=== PATIENT | female | born 1940 | race Caucasian/White ===

== ENCOUNTER 2018-09-30 18:43 | Emergency (ER) | payer MEDICARE, BC ==
[2018-09-30] MEDS ORDERED: ACETAMINOPHEN 325 MG TABLET PO ONE (19:24)
[2018-09-30] MEDS ORDERED: ONDANSETRON HCL INJ/PF 4 MG/2 ML SDV IV ONE (19:24)
--- NOTE | 2018-09-30 19:25 | ER Document Report ---
ED Medical Screen (RME) - General Chief Complaint: Headache Stated Complaint: HEADPAIN Time Seen by Provider: 09/30/18 19:22 Primary Care Provider: JULIAN BLAKE MD [Primary Care Provider] - Follow up as needed Mode of Arrival: Ambulatory Information source: Patient Notes: Patient presents complaining of headache for the past 3 days has wavered in intensity. Patient does present tonight hypertensive with headache from the neck that radiates from the back of the head to the front. Patient does complain of nausea. Patient denies any head injury or fever. Patient reports she has been compliant with her antihypertensive medication. I have greeted and performed a rapid initial assessment of this patient. A comprehensive ED assessment and evaluation of the patient, analysis of test results and completion of the medical decision making process will be conducted by additional ED providers. TRAVEL OUTSIDE OF THE [place] IN LAST 30 DAYS: No - Related Data Allergies/Adverse Reactions: amoxicillin Allergy (Verified 09/30/18 18:53) Past Medical History - Past Medical History Cardiac Medical History: Reports: Hx Hypercholesterolemia, Hx Hypertension Renal/ Medical History: Denies: Hx Peritoneal Dialysis Physical Exam - Vital signs Vitals: Temp Pulse Resp BP Pulse Ox 98.1 F 79 18 221/80 H 97 09/30/18 19:02 09/30/18 19:02 09/30/18 19:02 09/30/18 19:02 09/30/18 19:02 - Neurological Neuro grossly intact: Yes Cognition: Normal Adrien Coma Scale Eye Opening: Spontaneous Adrien Coma Scale Verbal: Oriented [place] Coma Scale Motor: Obeys Commands Adrien Coma Scale Total: 15 Speech: Normal. No: Dysarthria Cerebellar coordination: Normal Course - Vital Signs Vital signs: Temp Pulse Resp BP Pulse Ox 98.1 F 79 18 221/80 H 97 09/30/18 19:02 09/30/18 19:02 09/30/18 19:02 09/30/18 19:02 09/30/18 19:02 Doctor's Discharge - Discharge Referrals: JULIAN BLAKE MD [Primary Care Provider] - Follow up as needed
--- NOTE | 2018-09-30 20:05 | RADIOLOGY REPORT (SQ) ---
EXAM DESCRIPTION: CT HEAD WITHOUT IV CONTRAST COMPLETED DATE/TME: 09/30/2018 19:22 CLINICAL HISTORY: 77 years Female H[place] COMPARISON: None. TECHNIQUE: Contiguous axial CT images obtained through the brain without IV contrast. This exam was performed according to our department optimization program which includes automated exposure control, adjustment of the mA and/or kv according to patient size and/or use of iterative reconstruction technique. FINDINGS: The ventricles and sulci are within normal limits for the patient's age. No midline shift or mass effect. No masses identified. No acute intracranial hemorrhage. Vascular calcification No fluid or significant mucosal thickening in the visualized paranasal sinuses. No depressed calvarial fractures. IMPRESSION: No acute intracranial abnormality is identified.
[2018-09-30 20:06] LABS: ABSOLUTE BASOPHILS # (AUTO) 0.1 10^3/uL (0.0-0.2); ABSOLUTE EOSINOPHILS # (AUTO) 0.2 10^3/uL (0.0-0.6); ABSOLUTE LYMPHOCYTES (AUTO) 3.4 10^3/uL (0.5-4.7); ABSOLUTE MONOCYTES (AUTO) 0.8 10^3/uL (0.1-1.4); BASOPHILS % (AUTO) 0.8 % (0-2); EOSINOPHILS % (AUTO) 1.8 % (0-6); HEMATOCRIT 39.7 % (36.0-47.0); HEMOGLOBIN 14.1 g/dL (12.0-15.5); LYMPHOCYTES % (AUTO) 36.6 % (13-45); MEAN CORPUSCULAR HEMOGLOBIN 33.7 pg (27.0-33.4); MEAN CORPUSCULAR HGB CONC 35.5 g/dL (32.0-36.0); MEAN CORPUSCULAR VOLUME 95 fl (80-97); MONOCYTES % (AUTO) 8.1 % (3-13); PLATELET COUNT 266 10^3/uL (150-450); RED BLOOD COUNT 4.19 10^6/uL (3.72-5.28); RED CELL DISTRIBUTION WIDTH 12.9 % (11.5-14.0); SEGMENTED NEUTROPHILS % (AUTO) 52.7 % (42-78); TOTAL CELLS COUNTED % (AUTO) 100 %; WHITE BLOOD COUNT 9.4 10^3/uL (4.0-10.5)
--- NOTE | 2018-09-30 20:31 | ER Document Report ---
ED Headache - General Chief Complaint: Headache Stated Complaint: HEADPAIN Time Seen by Provider: 09/30/18 19:22 Primary Care Provider: JULIAN BLAKE MD [Primary Care Provider] - Follow up as needed Mode of Arrival: Ambulatory Information source: Patient TRAVEL OUTSIDE OF THE [place] IN LAST 30 DAYS: No - HPI Notes: Patient 77-year-old female with a history of hypertension, high cholesterol, and hypothyroidism to the emergency department with chief complaint of headache and elevated blood pressure. Patient reports that the headache started on and has been intermittent since then until today when it became more constant. Patient reports a history of ocular headaches, but states this feels different. Patient did recently travel to [place] by vehicle. States she has been taking her lisinopril 40 mg daily as prescribed and has not missed a dose. Headache starts on each side of her neck and radiates to the middle portion of her head. Reports nausea, denies vomiting. Denies chest pain or shortness of breath. Patient did report dizziness with her headache "just really hurt." - Related Data Allergies/Adverse Reactions: amoxicillin Allergy (Verified 09/30/18 18:53) Past Medical History - General Information source: Patient - Social History Smoking Status: Never Smoker Cigarette use (# per day): No Chew tobacco use (# tins/day): No Smoking Education Provided: No Lives with: Spouse/Significant other Family History: None Patient has suicidal ideation: No Patient has homicidal ideation: No - Past Medical History Cardiac Medical History: Reports: Hx Hypercholesterolemia, Hx Hypertension Renal/ Medical History: Denies: Hx Peritoneal Dialysis Review of Systems - Review of Systems Constitutional: No symptoms reported EENT: See HPI Cardiovascular: No symptoms reported Respiratory: No symptoms reported Gastrointestinal: See HPI Genitourinary: No symptoms reported Female Genitourinary: No symptoms reported Musculoskeletal: No symptoms reported Skin: No symptoms reported Hematologic/Lymphatic: No symptoms reported Neurological/Psychological: No symptoms reported Physical Exam - Vital signs Vitals: Temp Pulse Resp BP Pulse Ox 98.1 F 79 18 221/80 H 97 09/30/18 19:02 09/30/18 19:02 09/30/18 19:02 09/30/18 19:02 09/30/18 19:02 - Notes Notes: PHYSICAL EXAMINATION: GENERAL: Well-appearing, well-nourished and in no acute distress. HEAD: Atraumatic, normocephalic. EYES: Pupils equal round and reactive to light, extraocular movements intact, sclera anicteric, conjunctiva are normal. ENT: nares patent, oropharynx clear without exudates. Moist mucous membranes. NECK: Normal range of motion, supple without lymphadenopathy LUNGS: Breath sounds clear to auscultation bilaterally and equal. No wheezes rales or rhonchi. HEART: Regular rate and rhythm without murmurs ABDOMEN: Soft, nontender, normoactive bowel sounds. No guarding, no rebound. No masses appreciated. EXTREMITIES: Normal range of motion, no pitting or edema. No cyanosis. NEUROLOGICAL: No focal neurological deficits. Moves all extremities spontaneously and on command. PSYCH: Normal mood, normal affect. SKIN: Warm, Dry, normal turgor, no rashes or lesions noted. Course - Re-evaluation Re-evalutation: 09/30/18 20:37 Upon assessment patient's blood pressure had decreased to 171/49. Reports after receiving the Zofran did help with her nausea. Patient does report feeling better after receiving Tylenol. Will wait on lab results and obtain EKG. 09/30/18 22:30 Discussed lab results, CT scan, and EKG with patient and . She reports feeling much better and now rating her headache a 1 out of 5. States that the Zofran helped with her nausea. Her blood pressure is 147/54. Patient in no acute distress and states that she is ready to go home. Patient reports that she has been dealing with stressors at home. Informed to follow-up with primary care physician and to keep a blood pressure log at home. Please return to the emergency department if your blood pressure becomes elevated and you are symptomatic such as dizziness, vomiting, severe headache, or any other concerning signs or symptoms. Signs and symptoms of stroke with patient and . Verbalized understanding of plan of care and in agreement. Patient also reiterated that the Tylenol did help with her headache. 09/30/18 22:43 - Vital Signs Vital signs: Temp Pulse Resp BP Pulse Ox 98 F 79 12 147/54 H 95 09/30/18 22:01 09/30/18 19:02 09/30/18 22:01 09/30/18 22:01 09/30/18 22:01 - Laboratory Result Diagrams: 09/30/18 19:52 09/30/18 19:52 Laboratory results interpreted by me: 09/30/18 09/30/18 19:52 19:52 MCH 33.7 H Chloride 108 H - Diagnostic Test Radiology reviewed: Reports reviewed - EKG Interpretation by Me Additional EKG results interpreted by me: 09/30/18 22:34 EKG showed a normal sinus rhythm, rate at 77. ME 141, QT 388, QTc 440. No ST elevation or T wave abnormalities. No ectopy. Discharge - Discharge Clinical Impression: Nausea Hypertension Qualifiers: Hypertension type: unspecified Qualified Code(s): I10 - Essential (primary) hypertension Headache Qualifiers: Headache type: unspecified Headache chronicity pattern: unspecified pattern Intractability: not intractable Qualified Code(s): R51 - Headache Condition: Stable Disposition: HOME, SELF-CARE Instructions: Headache ([facility]) Additional Instructions: You were seen in the emergency department today for elevated blood pressure and headache. The CAT scan of your head was negative. The blood work and EKG was unremarkable. Please follow-up with your primary care physician regarding your blood pressure. Keep a blood pressure log at home continue your home medications as previously prescribed. Please return to the emergency department for worsening headache, vomiting, any change in neurological symptoms, chest pain, or any other concerning signs or symptoms. Headache The physician does not feel that the headache you are experiencing has a serious underlying cause. Most headaches are due to emotional stress, with resultant muscle tension (tension headache). Occasionally, headaches are secondary to changes in the blood vessels of the scalp (vascular headache and migraine headache). Sometimes, a headache is the first symptom of another developing illness, such as a viral infection. You have no evidence of stroke, bleeding, meningitis, or other serious cause of your headache. The treatment of headaches varies with the severity and cause of the pain. Not all headaches need pain shots. In fact, there is evidence that using narcotics for headaches may make them worse in the long run. The physician will determine the therapy that's in your best interest. If you develop a fever, if the headache is different from any you've previously experienced, or if the headache progressively worsens, then call your physician at once or go to the emergency room. Referrals: JULIAN BLAKE MD [Primary Care Provider] - Follow up as needed
[2018-09-30 20:33] LABS: ALANINE AMINOTRANSFERASE 19 U/L (9-52); ALBUMIN 4.6 g/dL (3.5-5.0); ALKALINE PHOSPHATASE 62 U/L (38-126); ANION GAP 7 (5-19); ASPARTATE AMINO TRANSFERASE 35 U/L (14-36); BILIRUBIN,DIRECT 0.2 mg/dL (0.0-0.4); BILIRUBIN,TOTAL 0.6 mg/dL (0.2-1.3); BLOOD UREA NITROGEN 14 mg/dL (7-20); CALCIUM 10.2 mg/dL (8.4-10.2); CARBON DIOXIDE 27 mmol/L (22-30); CHLORIDE 108 mmol/L (98-107); GLUCOSE 94 mg/dL (75-110); POTASSIUM 3.9 mmol/L (3.6-5.0); SODIUM 141.6 mmol/L (137-145); TOTAL PROTEIN 7.7 g/dL (6.3-8.2)
--- NOTE | 2018-09-30 20:48 | EKG REPORT ---
SEVERITY:- BORDERLINE ECG - SINUS RHYTHM PROBABLE LEFT ATRIAL ABNORMALITY : Confirmed by: Nanda Forrest MD 30-Sep-2018 20:47:47
[2018-09-30 23:09] VITALS: BP 147/54
== END 2018-09-30 22:58 | disposition home or self-care (01) ==
LOC: ER 18:43
DX: R11.0 Nausea (principal); R51 Headache; I10 Essential (primary) hypertension; E78.00 Pure hypercholesterolemia, unspecified; E03.9 Hypothyroidism, unspecified; Z88.0 Allergy status to penicillin
CPT/HCPCS: 99284; 96374; 36415; 85025; 80053; 70450; 93005; 93010; A9270; J2405

== ENCOUNTER 2018-10-02 22:30 | Emergency (ER) | payer MEDICARE, BC ==
[2018-10-02] MEDS ORDERED: ACETAMINOPHEN 325 MG TABLET PO ONE (22:50)
--- NOTE | 2018-10-02 22:53 | ER Document Report ---
ED Medical Screen (RME) - General Chief Complaint: Headache Stated Complaint: HEADACHE Time Seen by Provider: 10/02/18 22:49 Primary Care Provider: JULIAN BLAKE MD [Primary Care Provider] - Follow up as needed Notes: 77-year-old female with a history of hypertension that comes to the emergency department for chief complaint of a headache in the back of her head and blood pressure reading of 220 systolic at home. By primary care today, blood pressure was 120s at the office, she did have her blood pressure medication adjusted but has not filled the new prescription. Denies vomiting, visual changes, focal numbness or weakness. TRAVEL OUTSIDE OF THE [place] IN LAST 30 DAYS: No - Related Data Allergies/Adverse Reactions: amoxicillin Allergy (Verified 09/30/18 18:53) Past Medical History - Past Medical History Cardiac Medical History: Reports: Hx Hypercholesterolemia, Hx Hypertension Renal/ Medical History: Denies: Hx Peritoneal Dialysis Physical Exam - Vital signs Vitals: Temp Pulse Resp BP Pulse Ox 97.8 F 76 16 208/73 H 96 10/02/18 22:31 10/02/18 22:31 10/02/18 22:31 10/02/18 22:31 10/02/18 22:31 - General General appearance: Appears well In distress: None - Neurological Neuro grossly intact: Yes Cognition: Normal Orientation: AAOx4 Adrien Coma Scale Verbal: Oriented [place] Coma Scale Motor: Obeys Commands Speech: Normal Cranial nerves: Normal Cerebellar coordination: Normal Motor strength normal: LUE, RUE, LLE, RLE 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 As a result CAT scan will be performed. I have greeted and performed a rapid initial assessment of this patient. A comprehensive ED assessment and evaluation of the patient, analysis of test results and completion of the medical decision making process will be conducted by additional ED providers. - Vital Signs Vital signs: Temp Pulse Resp BP Pulse Ox 97.8 F 76 16 208/73 H 96 10/02/18 22:31 10/02/18 22:31 10/02/18 22:31 10/02/18 22:31 10/02/18 22:31 Doctor's Discharge - Discharge Referrals: JULIAN BLAKE MD [Primary Care Provider] - Follow up as needed
--- NOTE | 2018-10-02 23:48 | RADIOLOGY REPORT (SQ) ---
CLINICAL HISTORY: headache, blood pressure >200 systolic COMPARISON: September 30, 2018. TECHNIQUE: CT HEAD WITHOUT IV CONTRAST on 10/02/2018 10:50 PM CDT This exam was performed according to our departmental dose-optimization program, which includes automated exposure control, adjustment of the mA and/or kV according to patient size and/or use of iterative reconstruction technique. FINDINGS: There is no acute hemorrhage, mass effect or midline shift. Nagel-white differentiation is preserved. There is no hydrocephalus. There is no significant volume loss for age. There are mild patchy hypodensities within the periventricular and subcortical white matter, consistent with microangiopathic ischemic changes. The calvarium is intact. Orbits and globes are unremarkable. The paranasal sinuses are clear. Mastoid air cells are clear. IMPRESSION: No acute intracranial findings.
--- NOTE | 2018-10-03 00:03 | ER Document Report ---
ED Headache - General Chief Complaint: Headache Stated Complaint: HEADACHE Time Seen by Provider: 10/02/18 22:49 Primary Care Provider: JULIAN BLAKE MD [Primary Care Provider] - Follow up as needed Notes: Patient is a 77-year-old female with a history of hypertension that comes to the emergency department for chief complaint of a headache in the back of her head and blood pressure reading of 220 systolic at home. By primary care today, blood pressure was 120s at the office, she did have her blood pressure medication adjusted but has not filled the new prescription. Denies vomiting, visual changes, focal numbness or weakness. TRAVEL OUTSIDE OF THE [place] IN LAST 30 DAYS: No - Related Data Allergies/Adverse Reactions: amoxicillin Allergy (Verified 09/30/18 18:53) Past Medical History - General Information source: Patient - Social History Smoking Status: Never Smoker Frequency of alcohol use: None Drug Abuse: None Lives with: Family Family History: None - Past Medical History Cardiac Medical History: Reports: Hx Hypercholesterolemia, Hx Hypertension Renal/ Medical History: Denies: Hx Peritoneal Dialysis Review of Systems - Review of Systems Constitutional: No symptoms reported EENT: No symptoms reported Cardiovascular: No symptoms reported Respiratory: No symptoms reported Gastrointestinal: No symptoms reported Genitourinary: No symptoms reported Female Genitourinary: No symptoms reported Musculoskeletal: No symptoms reported Skin: No symptoms reported Hematologic/Lymphatic: No symptoms reported Neurological/Psychological: See HPI Physical Exam - Vital signs Vitals: Temp Pulse Resp BP Pulse Ox 97.8 F 76 16 208/73 H 96 10/02/18 22:31 10/02/18 22:31 10/02/18 22:31 10/02/18 22:31 10/02/18 22:31 - Notes Notes: GENERAL: Alert, interacts well. No acute distress. HEAD: Normocephalic, atraumatic. EYES: Pupils equal, round, and reactive to light. Extraocular movements intact. ENT: Oral mucosa moist, tongue midline. Oropharynx unremarkable. Airway patent. Nares patent, no nasal septal hematoma, TM's intact. NECK: Full range of motion. Supple. Trachea midline. LUNGS: Clear to auscultation bilaterally, no wheezes, rales, or rhonchi. No respiratory distress. HEART: Regular rate and rhythm. No murmur ABDOMEN: Soft, non-tender. Non-distended. Bowel sounds present in all 4 quadrants. GENITOURINARY: Deferred EXTREMITIES: Moves all 4 extremities spontaneously. No edema, normal radial and dorsalis pedis pulses bilaterally. No cyanosis. BACK: no cervical, thoracic, lumbar midline tenderness. No saddle anesthesia, normal distal neurovascular exam. NEUROLOGICAL: Alert and oriented x3. Normal speech. Cranial nerves II through XII grossly intact. PSYCH: Normal affect, normal mood. SKIN: Warm, dry, normal turgor. No rashes or lesions noted. Course - Re-evaluation Re-evalutation: Patient is well appearing but does complain of a posterior headache. Blood pressure 208 systolic on arrival. No neurological deficits. Patient is not in distress. However because of her age, blood pressure elevation, and headache decision was made to perform cat scan. She denies chest pain, she is urinating normally. Cat scan negative for acute findings. I re-evaluated patient after she had been given Tylenol in triage and she has no current symptoms. I rechecked her blood pressure and found a systolic blood pressure of 165. Patient is requesting to go home. She reports her headache has completely resolved. Based on this, her neurological exam, and her negative CAT scan I do have a low suspicion of acute intracranial hemorrhage or other stroke. Patient shows me that she has adjustment of her blood pressure medication which she will be starting today when she fills her prescription. She also has treatment of her tension headache prescribed. She has a follow-up later today as well. Discussed strict return precautions with patient and . They state satisfaction and agreement. Stable at time of discharge. - Vital Signs Vital signs: Temp Pulse Resp BP Pulse Ox 97.8 F 76 16 165/68 H 96 10/02/18 22:31 10/02/18 22:31 10/02/18 22:31 10/03/18 00:00 10/02/18 22:31 Discharge - Discharge Clinical Impression: Headache Qualifiers: Headache type: tension-type Headache chronicity pattern: acute headache Intractability: not intractable Qualified Code(s): G44.209 - Tension-type headache, unspecified, not intractable Hypertension Qualifiers: Hypertension type: unspecified Qualified Code(s): I10 - Essential (primary) hypertension Condition: Stable Disposition: HOME, SELF-CARE Additional Instructions: Your CAT scan of the head does not show any concerning findings. Your evaluation is reassuring. Your symptoms do suggest tension type headaches. Your blood pressure also need better control. Start your new blood pressure regimen, follow-up with your primary care for additional adjustments. Return for any concerning symptoms including severe headache, vomiting, confusion, weakness on one side of your body, visual changes, chest pain, or any other concerning symptoms. Referrals: JULIAN BLAKE MD [Primary Care Provider] - Follow up as needed
[2018-10-03 05:06] VITALS: BP 165/68
== END 2018-10-03 00:10 | disposition home or self-care (01) ==
LOC: ER 22:30
DX: G44.209 Tension-type headache, unspecified, not intractable (principal); I10 Essential (primary) hypertension; Z79.899 Other long term (current) drug therapy; Z88.0 Allergy status to penicillin
CPT/HCPCS: 99284; 70450; A9270

== ENCOUNTER → 2018-10-24 | Outpatient (CLI) | payer MEDICARE, BC ==
--- NOTE | 2018-10-24 12:21 | RADIOLOGY REPORT (SQ) ---
EXAM DESCRIPTION: DUPLEX ART/LUZ FLOW COMPLETE COMPLETED DATE/TIME: 10/24/2018 9:24 am REASON FOR STUDY: RENOVASCULAR HTN (I15.0) I15.0 RENOVASCULAR HYPERTENSION COMPARISON: None. TECHNIQUE: Realtime and static grayscale images acquired. Selected color Doppler, velocities and spe ctral images recorded. LIMITATIONS: None. FINDINGS: RIGHT KIDNEY: RENAL ARTERY VELOCITIES: Origin and mid renal artery not visualized. Hilum velocities measure 66 cm/ sec. Segmental artery velocity 60 cm/sec. RENAL VEIN: Color doppler flow present, patent. VELOCITY RATIO: 1.0. Normal waveforms. KIDNEY: Normal size. No significant pathology. LEFT KIDNEY: RENAL ARTERY VELOCITIES: Origin and mid renal artery is not visualized. Hilum velocities measure 119 Cm/sec. Segmental artery velocity 45 cm/sec. RENAL VEIN: Color doppler flow present, patent. VELOCITY RATIO: 1.8. Normal waveforms. KIDNEY: Normal size. No significant pathology. BLADDER: Normal. OTHER: Minimally elevated RIS bilaterally, a nonspecific finding. IMPRESSION: NO DOPPLER EVIDENCE OF HEMODYNAMICALLY SIGNIFICANT RENAL ARTERY STENOSIS. COMMENT: NORMAL RENAL ARTERY/AORTA VELOCITY RATIO IS LESS THAN OR EQUAL TO 3.5. TECHNICAL DOCUMENTATION: JOB ID: [id number] [employer]- All Rights Reserved Reading location - IP/workstation name: [email or web address]
== END ==
LOC: RAD 06:33
PROVIDERS: ATTEND Family Medicine
DX: I15.0 Renovascular hypertension (principal)
CPT/HCPCS: 93975

== ENCOUNTER → 2018-11-07 | Outpatient (CLI) | payer MEDICARE, BC ==
--- NOTE | 2018-11-07 15:15 | RADIOLOGY REPORT (SQ) ---
EXAM DESCRIPTION: CHEST PA/LATERAL COMPLETED DATE/TIME: 11/07/2018 2:51 pm REASON FOR STUDY: CHEST PAIN COMPARISON: None. EXAM PARAMETERS: NUMBER OF VIEWS: two views TECHNIQUE: Digital Frontal and Lateral radiographic views of the chest acquired. RADIATION DOSE: NA LIMITATIONS: none FINDINGS: LUNGS AND PLEURA: No opacities, masses or pneumothorax. No pleural effusion. 5 mm nodular density overlies right lung apex. MEDIASTINUM AND HILAR STRUCTURES: No masses or contour abnormalities. HEART AND VASCULAR STRUCTURES: Normal heart size. Aortic atherosclerosis. BONES: No acute findings. HARDWARE: None in the chest. OTHER: No other significant finding. IMPRESSION: No evidence of acute cardiopulmonary process. 5 mm nodular density overlies right lung apex possibly calcified granuloma. Recommend correlation wi th priors if available or nonemergent CT for further characterization. TECHNICAL DOCUMENTATION: JOB ID: [id number] [employer]- All Rights Reserved Reading location - IP/workstation name: [email or web address]
== END ==
LOC: OD 14:39
PROVIDERS: ATTEND Family Medicine
DX: J98.4 Other disorders of lung (principal); R07.9 Chest pain, unspecified
CPT/HCPCS: 71046

== ENCOUNTER → 2019-07-25 | Outpatient (CLI) | payer MEDICARE, BC ==
--- NOTE | 2019-07-25 13:49 | RADIOLOGY REPORT (SQ) ---
EXAM DESCRIPTION: CHEST PA/LATERAL COMPLETED DATE/TIME: 07/25/2019 12:00 pm REASON FOR STUDY: OTH SYMPTOMS AND SIGNS INVOLVING THE CIRC AND RESP SYSTEMS COMPARISON: 11/07/2018 EXAM PARAMETERS: NUMBER OF VIEWS: two views TECHNIQUE: Digital Frontal and Lateral radiographic views of the chest acquired. RADIATION DOSE: NA LIMITATIONS: none FINDINGS: LUNGS AND PLEURA: No opacities, masses or pneumothorax. No pleural effusion. MEDIASTINUM AND HILAR STRUCTURES: No masses or contour abnormalities. HEART AND VASCULAR STRUCTURES: Heart normal size. No evidence for failure. BONES: No acute findings. HARDWARE: None in the chest. OTHER: No other significant finding. IMPRESSION: NO SIGNIFICANT RADIOGRAPHIC FINDING IN THE CHEST. TECHNICAL DOCUMENTATION: JOB ID: [id number] [employer]- All Rights Reserved Reading location - IP/workstation name: [email or web address]
== END ==
LOC: OD 11:48
PROVIDERS: ATTEND Family Medicine
DX: R09.89 Other specified symptoms and signs involving the circulatory and respiratory systems (principal)
CPT/HCPCS: 71046

== ENCOUNTER 2019-12-06 08:38 | Day surgery (SDC) | payer MEDICARE, BC ==
[2019-12-03 10:13] LABS: ANION GAP 9 (5-19); BLOOD UREA NITROGEN 18 mg/dL (7-20); CALCIUM 10.5 mg/dL (8.4-10.2); CARBON DIOXIDE 28 mmol/L (22-30); CHLORIDE 101 mmol/L (98-107); GLUCOSE 113 mg/dL (75-110); POTASSIUM 5.2 mmol/L (3.6-5.0)
--- NOTE | 2019-12-03 10:36 | EKG REPORT ---
SEVERITY:- OTHERWISE NORMAL ECG - SINUS ARRHYTHMIA, RATE 52-70 : Confirmed by: Rani Pineda 03-Dec-2019 10:34:56
[~2019-12-06 08:38] MED LIST: LACTATED RINGERS 1000 ML IV PRN; LIDOCAINE 0.5% INJ-PF (5 MG/ML) 50 ML SDV SUBCUT PRN
[2019-12-06] MEDS ORDERED: PROPOFOL INJ 200 MG/20 ML VIAL IV ONE (10:49)
[2019-12-06] MEDS ORDERED: DIPHENHYDRAMINE HCL 50 MG/ML VIAL IV PRN (11:23)
[2019-12-06] MEDS ORDERED: PROMETHAZINE HCL INJ 25 MG/1 ML VIAL IV PRN (11:23)
[2019-12-06] MEDS ORDERED: FENTANYL CITRATE INJ/PF 100 MCG/2 ML AMPUL IV PRN (11:23)
--- NOTE | 2019-12-06 11:56 | Operative Report ---
Nonrecallable Operative Report DATE OF SURGERY: 12/06/19 PREOPERATIVE DIAGNOSIS: History of colon polyps, screening for malignancy POSTOPERATIVE DIAGNOSIS: 1. Normal screening colonoscopy. 2. Diverticulosis, without signs of diverticulitis. 3. Small, nonbleeding internal hemorrhoids. OPERATION: Colonoscopy to the cecum SURGEON: CORRINA RODRÍGUEZ ANESTHESIA: LMAC TISSUE REMOVED OR ALTERED: None COMPLICATIONS: None apparent ESTIMATED BLOOD LOSS: None PROCEDURE: Procedure in detail: After informed consent was obtained, the patient was brought to the operating room and laid in the left lateral decubitus position. The endoscope was inserted into the rectum. It was passed up the rectum, sigmoid colon, descending colon, across the transverse colon, down the ascending colon, and into the cecum. The ileocecal valve and appendiceal orifice were identified. The scope was then withdrawn, circumferentially noting the mucosa. The prep was excellent. The scope was withdrawn past the ascending colon, transverse colon, down the descending colon, and into the sigmoid colon. In the sigmoid colon several small, scattered diverticula were identified. The scope was then brought into the rectum. A retroflexion maneuver was performed. There were small, nonbleeding internal hemorrhoids identified. The scope was then straightened, air was suctioned from the rectum, the scope was removed, and the procedure was concluded. All sponge, instrument, and needle counts were correct x2. Condition: Stable. Recommendation: Repeat colonoscopy in 5 years due to personal history of colon polyps.
--- NOTE | 2019-12-06 11:58 | Discharge Summary ---
Discharge Summary (SDC) - Discharge Final Diagnosis: Normal screening colonoscopy Date of Surgery: 12/06/19 Discharge Date: 12/06/19 Condition: Stable Treatment or Instructions: Discharge home. Diet as tolerated. Activity, as tolerated. Follow-up with [place] [facility] in 5 years for repeat colonoscopy. Referrals: JULIAN BLAKE MD [Primary Care Provider] - Discharge Diet: As Tolerated Respiratory Treatments at Home: Deep Breathing/Coughing, Incentive Spirometer Discharge Activity: Activity As Tolerated Home Care Assistance: None Needed Report the Following to Your Physician Immediately: Shortness of Breath, Nausea, Vomiting, Increase in Pain, Fever over 101 Degrees, Unusual Bleeding, Redness, Swelling, Warmth
[2019-12-06 13:56] VITALS: BP 135/59
== END 2019-12-06 12:40 | disposition home or self-care (01) ==
LOC: OROUT 08:38
PROVIDERS: ATTEND Surgery
DX: Z12.11 Encounter for screening for malignant neoplasm of colon (principal); K57.30 Diverticulosis of large intestine without perforation or abscess without bleeding; K64.8 Other hemorrhoids; Z86.010 Personal history of colon polyps; Z03.818 Encounter for observation for suspected exposure to other biological agents ruled out; I10 Essential (primary) hypertension; Z88.0 Allergy status to penicillin; E78.00 Pure hypercholesterolemia, unspecified; E03.9 Hypothyroidism, unspecified; Z87.891 Personal history of nicotine dependence; Z79.899 Other long term (current) drug therapy
CPT/HCPCS: 45380; 93005; 36415 ×2; 84132; 80048; 93010; U0003; J2704; C9803; 812; 87635